=== PATIENT | male | born 1995 | race African-American/Black ===

== ENCOUNTER 2017-07-02 15:49 | Emergency (ER) | payer OTHER ==
[~2017-07-02] VITALS: Ht 182.9 cm; Wt 93.2 kg
[2017-07-02 15:50] VITALS: BP 145/71
[2017-07-02] MEDS ORDERED: cefTRIAXone SOD 250 MG VIAL (J0696) IM ONE (16:45)
[2017-07-02] MEDS ORDERED: AZITHROMYCIN 250 MG TAB PO ONE (16:45)
== END 2017-07-02 17:15 | disposition home or self-care (01) ==
LOC: M ED 15:49
DX: Z20.2 Contact with and (suspected) exposure to infections with a predominantly sexual mode of transmission (principal); F17.210 Nicotine dependence, cigarettes, uncomplicated
CPT/HCPCS: 87491; 87591; 96372; 99282; J0696